=== PATIENT | female | born 1985 | race Caucasian/White ===

== ENCOUNTER 2017-05-05 14:46 | Observation (INO) | payer MEDICAID ==
[~2017-05-05] VITALS: Ht 160 cm; Wt 81.0 kg
[2017-05-05 15:41] LABS: BASOPHIL % 0.2 %; EOSINOPHIL # 0.1 K/uL (0.0-0.5); EOSINOPHIL % 0.9 %; HEMATOCRIT 37.2 % (33.0-46.0); HEMOGLOBIN 13.1 g/dL (11.0-15.0); IMMATURE GRANULOCYTE # 0.1 K/uL (0.0-0.3); IMMATURE GRANULOCYTE % 1.2 %; LYMPHOCYTE # 1.9 K/uL (0.8-4.0); LYMPHOCYTE % 20.3 %; MCH 32.6 pg (27.0-34.0); MCHC 35.2 gm/dL (32.0-36.5); MCV 92.5 fl (83.0-98.0); MONOCYTE # 0.5 K/uL (0.0-1.0); MONOCYTE % 5.4 %; MPV 9.8 fl (9.4-12.4); NEUTROPHIL # (ANC) 6.6 K/uL (1.8-7.8); NRBC % 0 /100WBC (0-0.00); PLATELET COUNT 132 K/uL (150-450); RBC 4.02 M/uL (3.50-5.50); RDW-CV 12.8 % (11.9-14.6); WBC 9.1 K/uL (4.0-11.0)
[2017-05-05] MEDS ORDERED: LEXAPRO10 MG PO (16:05)
[2017-05-05] MEDS ORDERED: CLARITIN10 MG PO (16:06)
[2017-05-05] MEDS ORDERED: PRENATAL 1+1)(P1 TAB PO (16:06)
[2017-05-05] MEDS ORDERED: ACETAMINOPHEN325 MG PO (16:07)
[2017-05-05 17:17] LABS: BILIRUBIN URINE NEGATIVE (NEGATIVE); BLOOD URINE NEGATIVE /UL (NEGATIVE); COLOR URINE YELLOW (YELLOW); GLUCOSE URINE NEGATIVE (NEGATIVE); KETONE URINE 150 mg/dL (NEGATIVE); LEUKOCYTES URINE NEGATIVE /UL (NEGATIVE); NITRITE URINE NEGATIVE (NEGATIVE); PROTEIN URINE NEGATIVE (NEGATIVE); SPEC GRAVITY URINE 1.015 (1.003-1.035); TURBIDITY URINE CLEAR (CLEAR); UROBILINOGEN URINE NORMAL (NORMAL)
--- NOTE | 2017-05-06 05:06 | NUR ---
Pt received last tylenol @ 0300, is on her third bag of LR, received ambien and has been resting well throughout the night. Had elevated ketones and is on a clear liquid diet. VSS, lucila every 3-6 minutes, baseline 120 bpm.
[2017-05-06] MEDS ORDERED: PRENATAL 1+1)(P1 TAB PO (05:26)
== END 2017-05-06 08:55 | disposition disaster alternative care site (69) ==
LOC: GOBM 14:46 → GOBS 14:46 → GOBM 05-06 08:55 → GOBS 05-06 08:55
PROVIDERS: ADMIT Obstetrics & Gynecology
DX: O60.03 Preterm labor without delivery, third trimester (principal); O99.333 Smoking (tobacco) complicating pregnancy, third trimester; F17.200 Nicotine dependence, unspecified, uncomplicated; Z98.891 History of uterine scar from previous surgery; Z3A.34 34 weeks gestation of pregnancy
CPT/HCPCS: G0378; G0379; G0463; J2001; J7120